=== PATIENT | female | born 1975 | race Caucasian/White ===

== ENCOUNTER 2019-01-29 21:56 | Emergency (ER) | payer SELFPAY ==
[~2019-01-29] VITALS: Ht 167.6 cm; Wt 132.2 kg
[~2019-01-29 21:56] MED LIST: ONDA4TAB35 PO
[2019-01-29 22:03] VITALS: BP 158/83; PULSE 82; RESP 18; Ht 167.6 cm; Wt 132.2 kg
== END 2019-01-30 00:55 | disposition left against medical advice (07) ==
LOC: FTE 21:56
DX: Z53.21 Procedure and treatment not carried out due to patient leaving prior to being seen by health care provider (principal)

== ENCOUNTER 2019-05-14 19:27 | Emergency (ER) | payer OTHER ==
[~2019-05-14] VITALS: Ht 170.2 cm; Wt 131.7 kg
[~2019-05-14 19:27] MED LIST changes: +ACET-141 PO; +IBUP-1542 PO
[2019-05-14 19:52] VITALS: Ht 170.2 cm; Wt 131.7 kg
[2019-05-14] MEDS ORDERED: ONDANSETRON 4 MG INJ IV STA (22:08)
[2019-05-14] MEDS ORDERED: morphine 4 MG/ML VIAL IV STA (22:08)
[2019-05-14] MEDS ORDERED: morphine 2 MG INJ IV ONE (23:46)
--- NOTE | 2019-05-15 03:05 | ERD ---
ER Documentation Chief Complaint Chief Complaint BL PELVIC PAIN RADIATES TO BACK X 3 WEEKS WORST TODAY HAS OVARIAN CYST HPI 43-year-old female with history of hypertension, ovarian cysts for bilateral pelvic pain 3 weeks. The pain is noted to be worse the past few days. Pain is rated 7 out of 10, intermittent, lasting for a couple of minutes at a time. Denies fever. She has nausea but no vomiting. Denies chest pain or shortness of breath. She is eating normally. She took some ibuprofen with moderate relief however the pain returns. Otherwise no other modifying factors noted, no other treatments tried at home. ROS All systems reviewed and are negative except as per history of present illness. Medications Home Meds Active Scripts Ibuprofen* (Motrin*) 600 Mg Tab, 600 MG PO Q6H PRN for PAIN, #30 TAB Prov:GENTRY MEYERS DO 05/15/19 Acetaminophen* (Acetaminophen*) 500 MG Extra Strength Tablet, 500 MG PO Q4H PRN for PAIN AND OR ELEVATED TEMP, #30 TAB Prov:GENTRY MEYERS DO 05/15/19 Reported Medications Ondansetron Hcl* (Zofran* ODT) 4 Mg/Tab Tab.rapdis, 4 MG PO 08/14/11 Allergies Allergies: Coded Allergies: No Known Drug Allergy (Verified Allergy, Unknown, 08/14/11) PMhx/Soc History of Surgery: Yes () Anesthesia Reaction: No Hx Neurological Disorder: No Hx Respiratory Disorders: No Hx Cardiac Disorders: No Hx Psychiatric Problems: No Hx Miscellaneous Medical Probl: Yes (HTN, ovarian cyst, liver cyst) Hx Alcohol Use: No Hx Substance Use: No Hx Tobacco Use: No Smoking Status: Never smoker FmHx Family History: No coronary disease Physical Exam Vitals Vital Signs Date Temp Pulse Resp B/P (MAP) Pulse Ox O2 O2 Flow FiO2 Time Delivery Rate 05/14/19 98.0 63 16 117/62 98 Room Air 22:30 (80) 05/14/19 98.4 70 18 157/78 99 19:52 (104) Physical Exam Const: No acute distress Resp: Clear to auscultation bilaterally Cardio: Regular rate and rhythm, no murmurs Abd: Soft, non distended. Normal bowel sounds, no McBurney's point tenderness, no Resendez sign, no rebound or guarding noted, bilateral lower pelvic mild tenderness palpation Skin: No petechiae or rashes Back: No midline or flank tenderness Ext: No cyanosis, or edema Neur: Awake and alert Psych: Normal Mood and Affect Results 24 hrs Laboratory Tests Test 05/14/19 20:21 05/14/19 20:23 05/14/19 20:35 05/14/19 20:37 POC Beta HCG, NEGATIVE Qualitative Bedside Urine pH 6.0 (LAB) Bedside Urine Trace Protein (LAB) Bedside Urine Negative Glucose (UA) Bedside Urine Negative Ketones (LAB) Bedside Urine Blood Trace-intact Bedside Urine Negative Nitrite (LAB) Bedside Urine Negative Leukocyte Esterase (L Lipase 91 U/L White Blood Count 10.5 10^3/ul Red Blood Count 4.24 10^6/ul Hemoglobin 10.8 g/dl Hematocrit 34.5 % Mean Corpuscular 81.4 fl Volume Mean Corpuscular 25.5 pg Hemoglobin Mean Corpuscular 31.3 g/dl Hemoglobin Concent Red Cell 15.1 % Distribution Width Platelet Count 247 10^3/UL Mean Platelet Volume 10.2 fl Immature 0.300 % Granulocytes % Neutrophils % 72.4 % Lymphocytes % 15.4 % Monocytes % 10.0 % Eosinophils % 1.5 % Basophils % 0.4 % Nucleated Red Blood 0.0 /100WBC Cells % Immature 0.030 10^3/ul Granulocytes # Neutrophils # 7.6 10^3/ul Lymphocytes # 1.6 10^3/ul Monocytes # 1.1 10^3/ul Eosinophils # 0.2 10^3/ul Basophils # 0.0 10^3/ul Nucleated Red Blood 0.0 10^3/ul Cells # Urine Color YELLOW Urine Clarity CLEAR Urine pH 5.0 Urine Specific 1.013 [place] Urine Ketones NEGATIVE mg/dL Urine Nitrite NEGATIVE mg/dL Urine Bilirubin NEGATIVE mg/dL Urine Urobilinogen NEGATIVE mg/dL Urine Leukocyte NEGATIVE Zaira/ul Esterase Urine Microscopic 0 /HPF RBC Urine Microscopic 0 /HPF WBC Urine Bacteria FEW /HPF Urine Hemoglobin 1+ mg/dL Urine Glucose NEGATIVE mg/dL Urine Total Protein NEGATIVE mg/dl Sodium Level 142 mmol/L Potassium Level 4.0 mmol/L Chloride Level 107 mmol/L Carbon Dioxide Level 27 mmol/L Anion Gap 8 Blood Urea Nitrogen 24 mg/dl Creatinine 1.68 mg/dl Est Glomerular 33 mL/min Filtrat Rate mL/min Glucose Level 109 mg/dl Calcium Level 9.4 mg/dl Total Bilirubin 0.3 mg/dl Direct Bilirubin 0.00 mg/dl Indirect Bilirubin 0.3 mg/dl Aspartate Amino 20 IU/L Transf (AST/SGOT) Alanine 26 IU/L Aminotransferase (AL T/SGPT) Alkaline Phosphatase 116 IU/L Total Protein 7.8 g/dl Albumin 4.2 g/dl Globulin 3.60 g/dl Albumin/Globulin 1.16 Ratio Current Medications Medications Dose Sig/Wkadwo Start Time Status Last (Trade) Ordered Route PRN Stop Time Admin Dose Reason Admin Morphine 4 mg ONCE STAT 05/14/19 DC 05/14/19 Sulfate IV 22:08 05/14/19 22:18 (morphine) 22:10 Ondansetron 4 mg ONCE STAT 05/14/19 DC 05/14/19 HCl (Zofran IV 22:08 05/14/19 22:18 Inj) 22:10 Morphine 2 mg ONCE ONCE 05/14/19 DC 05/14/19 Sulfate IV 23:46 05/14/19 23:49 (morphine) 23:47 Morphine 2 mg ONCE STAT 05/15/19 DC 05/15/19 Sulfate IV 03:09 05/15/19 03:26 (morphine) 03:10 Procedures/MDM Medical Decision Making: Differential diagnosis includes but not limited to acute gastritis, acute gastroenteritis, appendicitis, cholecystitis, pancreatitis, nephrolithiasis, pyelonephritis, ruptured ovarian cyst, ovarian torsion Patient appeared well on physical exam. Nontoxic appearing. ED course: Patient was given morphine x3, Zofran IV fluids. Symptoms improved with treatment. Labs: CBC showed no severe anemia, no elevated WBC to suggest infection CMP showed no electrolyte abnormalities, creatinine 1.68 indicates some kidney injury, no liver failure noted. Lipase was normal Urine was negative UA was negative for infection Imaging: Gallbladder ultrasound showed no cholelithiasis or cholecystitis, polycystic kidney noted with hepatic cysts, and borderline extrahepatic bile duct dilatation noted. pelvic ultrasound showed large right ovarian cyst measuring 8.4cm left ovary not visualized Patient needed multiple doses of IV mophine for pain to decrease and given the large size of the ovarian cyst, there was concern for ovarian torsion. Dr Madison, professional nursing assistant [employer], was consulted to evaluate patient and she noted that patient did not require surgery at this time. Patient's abdominal symptoms have stabilized while in the department. No evidence of severe dehydration, sepsis, or surgical abdomen Extensive discussion with family and patient that occult disease cannot be ruled out. 8 hour recheck for repeat abdominal exam is planned Prescription(s): Patient given prescription for supportive medications . Patient advised to follow up with PCP in 1-2 days. Patient advised to return to ED for new or worsening symptoms. Patient stable on discharge from the ED. Disclaimer: Inadvertent spelling and grammatical errors are likely due to EHR/dictation software use and do not reflect on the overall quality of patient care. Also, please note that the electronic time recorded on this note does not necessarily reflect the actual time of the patient encounter. Departure Diagnosis: Primary Impression: Acute pain in female pelvis Additional Impressions: Ovarian cyst Laterality: right Qualified Codes: N83.201 - Unspecified ovarian cyst, r ight side Polycystic kidney Condition: Fair Patient Instructions: Ovarian Cyst Referrals: [facility] YOU HAVE RECEIVED A MEDICAL SCREENING EXAM AND THE RESULTS INDICATE THAT YOU DO NOT HAVE A CONDITION THAT REQUIRES URGENT TREATMENT IN THE EMERGENCY DEPARTMENT. FURTHER EVALUATION AND TREATMENT OF YOUR CONDITION CAN WAIT UNTIL YOU ARE SEEN IN YOUR DOCTORS OFFICE WITHIN THE NEXT 1-2 DAYS. IT IS YOUR RESPONSIBILITY TO MAKE AN APPOINTMENT FOR FOLOW-UP CARE. IF YOU HAVE A PRIMARY DOCTOR --you should call your primary doctor and schedule an appointment IF YOU DO NOT HAVE A PRIMARY DOCTOR YOU CAN CALL OUR PHYSICIAN REFERRAL HOTLINE AT IF YOU CAN NOT AFFORD TO SEE A PHYSICIAN YOU CAN CHOSE FROM THE FOLLOWING [facility] [id number]. [facility] [address] [facility] [address] [facility] [facility] [address] [facility]. [facility] [address] [facility]. [facility]. [address] Additional Instructions: Llame al doctor MABILLY y sharon tim SHERICE PARA DENTRO DE 1-2 SPIVEY.Dgale a la secretaria que nosotros le instruimos hacer esta sherice.Avise o llame si keller condicin se empeora antes de la sherice. Regresa aqui si peor o no mejor. por favor sharon un seguimiento con keller ginebra en 1-2 GENTRY Owusu DO May 15, 2019 03:05
[2019-05-15] MEDS ORDERED: morphine 2 MG INJ IV STA (03:09)
[2019-05-15 04:35] VITALS: BP 101/55; PULSE 71; RESP 18
== END 2019-05-15 04:47 | disposition home or self-care (01) ==
LOC: FTE 19:27
DX: N83.201 Unspecified ovarian cyst, right side (principal)
CPT/HCPCS: 36415; 76705; 76830; 76856; 80053; 81001; 81025; 83690; 85025; 96374; 96375; 96376; J2270; J2405; Z7502; 81003